=== PATIENT | female | born 1945 | race Caucasian/White ===

== ENCOUNTER 2016-11-26 16:32 | Inpatient (IN) | payer OTHER ==
[~2016-11-26] VITALS: Ht 172.7 cm; Wt 148.8 kg
[~2016-11-26 16:32] MED LIST: ADVAIR HFA120 INHALA IH; ALBUTEROL SULF8.5 GM IH; ALBUTEROL2.5 MG/3 M IH; ALDACTONE100 MG PO; AMOX TR-K CLV1 EAC4 PO; APRESOLINE50 MG PO; ARANESP60 MCG/0.3 SQ; ASCORBIC ACID500 M3 PO; ASPIR-LOW81 MG PO; ASPIR-TRIN325 M1 PO; ASPIRIN E.C.81 M1 PO; ASPIRIN325 MG PO; ASPIRIN81 M1 PO; ATORVASTATIN CA20 MG PO; ATORVASTATIN CA40 MG PO; AUGMENTIN875 MG PO; Ascorbic Acid,Ester- PO; Aspirin E.C. PO; BACTRIM,SEPT1 TABLE1 PO; BACTRIM,SEPT1 TABLET PO; BAYER ASPIRIN325 M1 PO; BIAXIN500 MG PO; BREO ELLIPTA 21 EACH IH; BUMETANIDE0.5 MG PO; BUMETANIDE1 MG PO; BUMEX0.5 MG PO; CALCITRIOL0.25 MCG PO; CALCIUM 600 +1 EAC9 PO; CARDIZEM60 MG PO; CARDURA1 MG PO; CARVEDILOL25 MG PO; CEFDINIR300 MG PO; CEFTIN500 MG PO; CENTRUM SILVER1 EAC3 PO; CENTRUM SILVER1 EAC4 PO; CEPHALEXIN500 MG PO; CILOSTAZOL50 MG PO; CIPRO500 MG PO; CIPROFLOXACIN500 M1 PO; CLONIDINE HCL0.1 MG PO; COREG12.5 MG PO; COREG25 M1 PO; COUMADIN1 MG PO; COUMADIN2 MG PO; CYMBALTA30 MG PO; Cardura PO; Centrum Silver,Certa PO; Chronulac,Cephulac,Enulose 20 gm/30 ml PO; Coreg PO; Coumadin,Jantoven PO; DAILY VALUE1 EACH PO; DIFLUCAN200 MG PO; DIGITEK125 MC2 PO; DIGOX125 MCG PO; DIGOXIN125 MCG PO; DITROPAN2.5 MG PO; DITROPAN5 MG PO; DOXYCYCLINE HY100 MG PO; DULOXETINE HCL30 MG PO; DUONEB 2.5-0.5 M3 ML AEROSOL; DUONEB 2.5-0.5 M3 ML IH; DUONEB3 ML IH; DURAGESIC25 MCG TD; DURAGESIC50 MCG TD; Diflucan PO; Dilaudid PO; Ditropan PO; EFFEXOR XR150 MG PO; EFFEXOR XR75 MG PO; EFFEXOR75 MG PO; ENDOCET 5-3251 EACH PO; ENULOSE10 GM/15 M PO; EPOGEN,PRO10000 UNIT SC; ERGOCALCIF50000 UNIT PO; EXTRA STRENGTH500 M1 PO; Effexor PO; Effexor XR PO; FENTANYL1 EAC1 TD; FENTANYL1 EAC5 TD; FEOSOL325 MG PO; FERROUS SULFAT325 MG PO; FISH OIL CONC1 EACH PO; FLAGYL500 MG PO; FLORA-Q CAPSUL1 EACH PO; FLORASTOR250 MG PO; FLORASTORKIDS250 MG PO; FLUCONAZOLE200 MG PO; FOLIC ACID1 MG PO; FOLVITE1 MG PO; FUROSEMIDE20 MG PO; FUROSEMIDE40 MG PO; Feosol PO; Flagyl IV; Flagyl PO; Folvite PO; GLUCO BURST37.5 GM PO; GLUCOSE GEL15 GM PO; HEPARIN SO5000 UNITS SC; HUMALOG MI100 UNIT/6; HUMALOG100 UNIT/1 SC; HUMULIN 70100 UNIT/2; HUMULIN R500 UNITS/ SC; HYDROPHOR OINT454 GM TP; HYZAAR 100-21 TABLET PO; Hyzaar 100-25 PO; Hyzaar 50-12.5 PO; INCRUSE ELLI62.5 MCG IH; IPRATR-ALBUTEROL3 ML IH; IRON 100 PLUS1 EACH PO; IRON325 M1 PO; IRON325 MG PO; K-DUR10 ME2 PO; K-DUR10 MEQ PO; K-DUR20 MEQ PO; KETOCONAZOLE60 GM TP; KLOR-CON M2020 MEQ PO; Keflex PO; LANOXIN125 MCG PO; LANTUS 10100 UNITS/ SC; LANTUS 3 M100 UNITS/ SC; LANTUS 3 M100 UNITS1 SC; LANTUS100 UNIT/1 SC; LANTUS100 UNIT/1 SQ; LASIX20 MG PO; LASIX40 MG PO; LEVAQUIN500 MG PO; LEVEMIR FL100 UNIT/1 SC; LEVEMIR100 UNIT/2 SC; LEVOTHYROXINE25 MCG PO; LIPITOR20 MG PO; LIPITOR40 MG PO; LIPITOR80 MG PO; LO-DOSE ASPIRIN81 M1 PO; LOSARTAN-HCTZ1 EAC1 PO; LYRICA100 MG PO; Lanoxin,Digitek PO; Lantus 3 ml Solostar SC; Lasix PO; Levaquin PO; Lipitor PO; MAG-OXIDE400 MG PO; METRONIDAZOLE500 MG PO; MILK OF MAGNESI10 ML PO; MULTI-VITAMIN1 EAC4 PO; MULTIPLE VITAM1 EACH PO; MULTIVITAMIN1 EAC1 PO; MULTIVITAMIN1 EAC2 PO; MYCAMINE100 MG IV; Macrobid PO; Maxipime IV; Micro-K,K-Tab,K-Dur, PO; Milk Of Magnesia,MOM PO; NACL; NEURONTIN100 MG PO; NITROGLYCERIN0.4 MG SL; NITROSTAT0.4 MG SL; NORVASC10 MG PO; NOVOLOG 10100 UNITS/ SC; NOVOLOG PE100 UNITS/ SC; NOVOLOG100 UNIT/1 SQ; NYSTATIN15 GM TP; Nitrostat,NitroQuick SL; NovoLOG, HumaLOG SC; ONDANSETRON ODT4 MG PO; OXYBUTYNIN CHLOR5 M1 PO; OXYBUTYNIN CHLOR5 MG PO; OXYCODONE HCL10 MG PO; OXYCODONE HCL5 M1 PO; OXYCODONE HCL5 MG PO; Ocean Nasal 0.65% BOTH NARES; Omega III EPA + DHA PO; PANTOPRAZOLE SO40 MG PO; PLAVIX75 MG PO; PLETAL50 MG PO; POLYETHYLENE GL17 GM PO; POTASSIUM; POTASSIUM CITR10 MEQ; POTASSIUM CITR10 MEQ PO; POVIDONE-IODINE30 GM TP; PRAVACHOL80 MG PO; PRAVASTATIN SOD80 MG PO; PREDNISONE20 MG PO; PRILOSEC40 MG PO; PRINIVIL40 MG PO; PROBIOTIC250 MG PO; PROCRIT10000 UNI1 SC; PROMETHAZINE HC25 M1 PO; PROTONIX40 MG PO; PROVENTIL,2.5 MG/3 M IH; ROCALTROL0.25 MCG PO; ROCEPHIN1 GM/50 ML IV; ROCEPHIN1000 MG IM; ROCEPHIN1000 MG IV; ROXICODONE5 MG PO; SANTYL30 GM TP; SODIUM CHLORIDE1 G1 PO; SORE THROAT LO1 EAC3 MM; SORE THROAT SP177 M1 MM; SPECTRAVITE SE1 EACH PO; SYNTHROID25 MCG PO; THERAGRAN1 TABLET PO; TRAMADOL; TRAMADOL HCL50 MG PO; TRIMETHOPRIM100 MG PO; TROSPIUM CHLORI20 MG PO; TYLENOL EXTRA500 MG PO; TYLENOL REGULA325 MG PO; Theragran PO; Tums PO; Tylenol PR; Tylenol Regular Stre PO; ULTRAM ER300 MG PO; ULTRAM50 MG PO; UNABLEOBTAIN; UROCIT-K15 MEQ PO; Ultram PO; VANCOCIN 250 M250 MG PO; VANCOCIN HCL PO; VANCOCIN HCL125 MG PO; VANCOMYCIN HCL125 MG PO; VANCOMYCIN HCL250 MG PO; VANCOMYCIN PO; VENLAFAXINE HC150 MG PO; VENLAFAXINE HCL75 MG PO; VITAMIN D-32000 UNI1 PO; VITAMIN D2000 INTUN PO; VITAMIN D250000 UNIT PO; VITAMIN D31000 UNI2 PO; VITAMIN D32000 UNI1 PO; VITAMIN D50000 UNI2 PO; VITAMIN D50000 UNIT PO; Vancocin Oral Soluti PO; Vancocin Oral Solution PO; Vitamin D, Drisdol PO; WARFARIN SODIUM5 MG PO; WELCHOL625 MG PO; XARELTO15 MG PO; XARELTO20 MG PO; XYLOCAINE 5%35.44 GM TP; Xarelto PO; ZEASORB POWDE70.9 GM TP; ZEASORB-AF70 G1 TP; ZESTRIL,PRINIVI10 M1 PO; ZESTRIL,PRINIVI10 MG PO; ZESTRIL,PRINIVI20 MG PO; ZESTRIL20 MG PO; ZINC OXIDE56.7 GM TP; ZINC SULFATE220 M1 PO; ZOCOR80 M1 PO; ZYVOX600 MG PO; Zeasorb Antifungal T TP; Zeasorb Antifungal Treatment,Mitrazol Powder TP; Zestril,Prinivil PO; Zocor PO; [UNRECOGNIZED DRUG - OTHER] TP
[2016-11-26 16:50] LABS: POINT-OF-CARE METER ID UU13113702
[2016-11-26 16:53] LABS: CREATININE 3.6 mg/dL (0.6-1.3); POTASSIUM 5.1 mEq/L (3.7-5.4)
[2016-11-26 17:02] LABS: HEMATOCRIT 31.3 % (36.0-46.0); MCH 30.9 PG (29.0-34.0); MCHC 32.6 G/DL (30.0-36.0); MCV 94.8 FL (83-99); MEAN PLAT.VOLUME 10.6 uM^3 (9.5-12.4); PLATELET COUNT 134 K/uL (156-360); WHITE BLOOD COUNT 17.5 K/uL (4.1-10.2)
[2016-11-26 17:13] LABS: CHLORIDE 104 mEq/L (99-109); POTASSIUM 4.9 mEq/L (3.7-5.4); SODIUM 133 mEq/L (136-147)
[2016-11-26 17:14] LABS: GLUCOSE 86 mg/dL (70-99)
[2016-11-26 17:15] LABS: ANION GAP 12 MEQ/L (2-14)
[2016-11-26] MEDS ORDERED: SPIRONOLACTONE100 MG PO (17:15)
[2016-11-26 17:17] LABS: GFR ESTIMATE (CALCULATED) 13 mL/min/
[2016-11-26] MEDS ORDERED: DEPAKOTE SPRIN125 MG PO (17:17)
[2016-11-26] MEDS ORDERED: FLORASTOR250 MG PO (17:17)
[2016-11-26 17:18] LABS: UREA NITROGEN (BUN) 51 mg/dL (9-23)
[2016-11-26] MEDS ORDERED: DUONEB 2.5-0.5 M3 ML AEROSOL (17:19)
[2016-11-26] MEDS ORDERED: GLUCO BURST37.5 GM PO (17:20)
[2016-11-26 17:59] LABS: ANISOCYTOSIS 1+; BURR CELLS RARE; EOSINOPHIL (%) 0 % (0-5); IMMATURE GRANULOCYTE (%) 6.1 % (0.0-0.7); IMMATURE GRANULOCYTE COUNT 10.6 K/uL; LYMPHOCYTE COUNT 0.5 K/uL (1.0-2.8); MACROCYTES FEW; MICROCYTOSIS OCC; MONOCYTE (%) 3.7 % (3-12); MONOCYTE COUNT 0.7 K/uL (0-0.8); NEUTROPHIL (%) 87.4 % (45-76); NEUTROPHIL COUNT 15.3 K/uL (1.8-6.4); OVALOCYTES OCC; PLAT.SUFFICIENCY DECREASED; SCHISTOCYTES FEW
[2016-11-26 18:22] LABS: POINT-OF-CARE METER ID UU13113702
[2016-11-26 19:09] LABS: BASE EXCESS -8.4 mEq/L (-3 to +3); BICARBONATE 18.8 mEq/L (22-26); CARBOXY HGB 2.1 % (0-5); METHEMOGLOBIN 1.3 % (0-1.5); PO2 68 mm Hg (80-100)
[2016-11-26 19:10] LABS: COMMENTS - BLOOD GASES C+; DEVICE NC; O2 FLOW 4 L/MIN; PCO2 45 mm Hg (35-45); SITE RR; TOTAL RESP RATE 16 resp/min; pH 7.23 (7.35-7.45)
[2016-11-26 19:20] LABS: POINT-OF-CARE METER ID UU13113702; POINT-OF-CARE USER ID NUTMMM10
[2016-11-26 20:34] LABS: POINT-OF-CARE METER ID UU13113702; POINT-OF-CARE USER ID NUTMMM10
[2016-11-26 21:55] VITALS: BP 85/40
[2016-11-26 22:12] LABS: ADD MIUA? YES; BILIRUBIN SMALL; BLOOD LARGE; COLOR DK YELLOW ((YELLOW)); GLUCOSE (STRIP) NEGATIVE; KETONES NEGATIVE; LEUKOCYTES MODERATE; NITRITE NEGATIVE; PROTEIN (STRIP) 300; SPECIFIC GRAVITY 1.014 (1.000-1.030); UROBILINOGEN 0.2 MG/DL (0.2-1.0)
[2016-11-26 22:50] LABS: POINT-OF-CARE METER ID UU14162636
[2016-11-26 23:00] LABS: UCUL ADDED? YES; WHITE BLOOD CELLS TNTC /HPF (0-5)
[2016-11-26 23:17] LABS: METH RESISTANT S AUREUS PCR POSITIVE (NEGATIVE)
[2016-11-26 23:27] LABS: PROBE CHECK PASS
[2016-11-26 23:32] LABS: TROP-I INTERPRETATION NEGATIVE; TROPONIN-I 0.15 ng/mL (0.0-0.30)
[2016-11-26 23:41] LABS: CHLORIDE 109 mEq/L (99-109); POTASSIUM 5.4 mEq/L (3.7-5.4); SODIUM 133 mEq/L (136-147)
[2016-11-26 23:45] LABS: ANION GAP 9 MEQ/L (2-14); TOTAL BILIRUBIN 1.2 mg/dL (0.0-1.0)
[2016-11-26 23:47] LABS: ALKALINE PHOSPHATASE 285 IU/L (3-129); GFR ESTIMATE (CALCULATED) 13 mL/min/
[2016-11-26 23:48] LABS: UREA NITROGEN (BUN) 49 mg/dL (9-23)
[2016-11-26 23:50] LABS: CREATINE KINASE 6 IU/L (1-294)
[2016-11-26 23:57] LABS: GLUCOSE 111 mg/dL (70-99)
[2016-11-27] VITALS (8 sets, daily range): BP systolic 0–154; BP diastolic 0–76
[2016-11-27 00:06] LABS: INTER. NORMALIZED RATIO 1.5; PROTHROMBIN TIME 15.8 (9.2-11.2); PTT 31.7 (25-32)
[2016-11-27 07:32] LABS: HEMATOCRIT 35.9 % (36.0-46.0); MCH 30.7 PG (29.0-34.0); MCV 95.7 FL (83-99); MEAN PLAT.VOLUME 11.4 uM^3 (9.5-12.4); PLATELET COUNT 120 K/uL (156-360); RBC DIS.WIDTH-CV 18.2 % (11.8-14.6); RBC DIS.WIDTH-SD 63.8 % (39-53); RED BLOOD COUNT 3.75 M/uL (3.80-5.20)
[2016-11-27 07:37] LABS: Estimated Average Glucose 128 mg/dL (70-123); HEMOGLOBIN A1c (GLYCOHEMOGLOB) 6.1 % HGB (Below 5.7)
[2016-11-27 08:00] LABS: TROP-I INTERPRETATION INDETERMINATE; TROPONIN-I 0.34 ng/mL (0.0-0.30)
[2016-11-27 08:22] LABS: POINT-OF-CARE METER ID UU13113702
[2016-11-27 08:36] LABS: ANION GAP 10 MEQ/L (2-14); CHLORIDE 107 MEQ/L (99-109); GFR ESTIMATE (CALCULATED) 15 mL/min/; GLUCOSE 147 mg/dL (70-99); MAGNESIUM 1.4 mg/dl (1.3-2.7); POTASSIUM 5.3 MEQ/L (3.7-5.4); SAMPLE HEMOLYSIS CHECK 0; SAMPLE ICTERIC CHECK 0; SAMPLE LIPEMIA CHECK 0; SODIUM 134 MEQ/L (136-147); UREA NITROGEN (BUN) 48 mg/dL (9-23)
[2016-11-27 12:17] LABS: TROP-I INTERPRETATION INDETERMINATE; TROPONIN-I 0.32 ng/mL (0.0-0.30)
[2016-11-27 13:39] LABS: C DIFF TOXIN POSITIVE (NEGATIVE)
[2016-11-27 14:00] LABS: PROBE CHECK PASS
[2016-11-27 18:23] LABS: POINT-OF-CARE METER ID UU14174217
[2016-11-28 01:12] LABS: POINT-OF-CARE METER ID UU13113748
[2016-11-28 05:42] LABS: HEMATOCRIT 33.2 % (36.0-46.0); MCH 31.1 PG (29.0-34.0); MCHC 32.8 G/DL (30.0-36.0); MCV 94.9 FL (83-99); MEAN PLAT.VOLUME 11.1 uM^3 (9.5-12.4); PLATELET COUNT 113 K/uL (156-360); RBC DIS.WIDTH-CV 18.1 % (11.8-14.6); WHITE BLOOD COUNT 12.7 K/uL (4.1-10.2)
[2016-11-28 05:45] LABS: POINT-OF-CARE METER ID UU14174217
[2016-11-28 06:24] LABS: ANION GAP 15 MEQ/L (2-14); CHLORIDE 106 MEQ/L (99-109); GFR ESTIMATE (CALCULATED) 14 mL/min/; GLUCOSE 190 mg/dL (70-99); MAGNESIUM 1.4 mg/dl (1.3-2.7); POTASSIUM 4.9 MEQ/L (3.7-5.4); SAMPLE HEMOLYSIS CHECK 0; SAMPLE ICTERIC CHECK 0; SAMPLE LIPEMIA CHECK 0; SODIUM 135 MEQ/L (136-147); UREA NITROGEN (BUN) 60 mg/dL (9-23)
[2016-11-28 07:20] LABS: CARBON DIOXIDE (BICARBONATE) 17.4 MEQ/L (20-31)
[2016-11-28 09:32] LABS: BASE EXCESS -12.7 mEq/L (-3 to +3); CARBOXY HGB 1.4 % (0-5); METHEMOGLOBIN 1.4 % (0-1.5)
[2016-11-28 09:33] LABS: BICARBONATE 14.9 mEq/L (22-26); PCO2 40 mm Hg (35-45); PO2 115 mm Hg (80-100); SITE ALINE; pH 7.18 (7.35-7.45)
[2016-11-28 09:34] LABS: COMMENTS - BLOOD GASES C+; DEVICE NC; O2 FLOW 5 L/MIN
[2016-11-28 12:29] LABS: POINT-OF-CARE METER ID UU13113748
[2016-11-28 15:24] LABS: BASE EXCESS -9.4 mEq/L (-3 to +3); BICARBONATE 17.6 mEq/L (22-26); CARBOXY HGB 1.4 % (0-5); COMMENTS - BLOOD GASES C+; DEVICE NC; METHEMOGLOBIN 1.8 % (0-1.5); O2 FLOW 4 L/MIN; PCO2 42 mm Hg (35-45); PO2 98 mm Hg (80-100); SITE RIGHT A-LINE; TOTAL RESP RATE 20 resp/min
[2016-11-28 15:25] LABS: pH 7.23 (7.35-7.45)
[2016-11-28 17:58] LABS: BASE EXCESS -7.6 mEq/L (-3 to +3); BICARBONATE 18.2 mEq/L (22-26); CARBOXY HGB 1.2 % (0-5); COMMENTS - BLOOD GASES C+; DEVICE NC; METHEMOGLOBIN 1.5 % (0-1.5); O2 FLOW 4 L/MIN; PCO2 37 mm Hg (35-45); PO2 120 mm Hg (80-100); SITE RIGHT A LINE; TOTAL RESP RATE 21 resp/min
[2016-11-28 18:22] LABS: POINT-OF-CARE METER ID UU13113748
[2016-11-28 23:56] LABS: POINT-OF-CARE METER ID UU13113748
[2016-11-29 06:31] LABS: HEMATOCRIT 31.6 % (36.0-46.0); MCH 29.9 PG (29.0-34.0); MCV 93.5 FL (83-99); MEAN PLAT.VOLUME 11.1 uM^3 (9.5-12.4); PLATELET COUNT 87 K/uL (156-360); RBC DIS.WIDTH-CV 18.2 % (11.8-14.6); RED BLOOD COUNT 3.38 M/uL (3.80-5.20); WHITE BLOOD COUNT 12.8 K/uL (4.1-10.2)
[2016-11-29 07:07] LABS: ANION GAP 14 MEQ/L (2-14); CHLORIDE 106 MEQ/L (99-109); GFR ESTIMATE (CALCULATED) 15 mL/min/; GLUCOSE 226 mg/dL (70-99); POTASSIUM 4.3 MEQ/L (3.7-5.4); SAMPLE HEMOLYSIS CHECK 0; SAMPLE ICTERIC CHECK 0; SAMPLE LIPEMIA CHECK 0; SODIUM 140 MEQ/L (136-147); UREA NITROGEN (BUN) 61 mg/dL (9-23)
[2016-11-29 07:10] LABS: MAGNESIUM 1.7 mg/dl (1.3-2.7)
[2016-11-29 12:42] LABS: ALKALINE PHOSPHATASE 151 IU/L (3-129); DIRECT BILIRUBIN 0.4 mg/dL (0.0-0.3); TOTAL BILIRUBIN 0.7 MG/DL (0.0-1.0)
[2016-11-30 05:30] LABS: POINT-OF-CARE METER ID UU13113748
[2016-11-30 06:29] LABS: HEMATOCRIT 28.8 % (36.0-46.0); MCH 30.6 PG (29.0-34.0); MCHC 32.6 G/DL (30.0-36.0); MCV 93.8 FL (83-99); MEAN PLAT.VOLUME 11.6 uM^3 (9.5-12.4); PLATELET COUNT 61 K/uL (156-360); RBC DIS.WIDTH-CV 18.2 % (11.8-14.6); RBC DIS.WIDTH-SD 62.4 % (39-53); RED BLOOD COUNT 3.07 M/uL (3.80-5.20)
[2016-11-30 06:30] LABS: WHITE BLOOD COUNT 8.9 K/uL (4.1-10.2)
[2016-11-30 07:12] LABS: ANION GAP 17 MEQ/L (2-14); CHLORIDE 104 MEQ/L (99-109); GFR ESTIMATE (CALCULATED) 15 mL/min/; GLUCOSE 285 mg/dL (70-99); MAGNESIUM 1.7 mg/dl (1.3-2.7); POTASSIUM 3.6 MEQ/L (3.7-5.4); SAMPLE HEMOLYSIS CHECK 0; SAMPLE ICTERIC CHECK 0; SAMPLE LIPEMIA CHECK 0; SODIUM 141 MEQ/L (136-147); UREA NITROGEN (BUN) 63 mg/dL (9-23)
[2016-11-30 10:06] LABS: INTER. NORMALIZED RATIO 1.4; PROTHROMBIN TIME 14.3 (9.2-11.2)
[2016-11-30 11:08] LABS: ALKALINE PHOSPHATASE 107 IU/L (3-129); DIRECT BILIRUBIN 0.3 mg/dL (0.0-0.3); TOTAL BILIRUBIN 0.7 MG/DL (0.0-1.0)
[2016-11-30 12:49] LABS: POINT-OF-CARE METER ID UU13113748
[2016-11-30 14:50] LABS: INTER. NORMALIZED RATIO 1.4
[2016-11-30 14:55] LABS: PTT 29.9 (25-32)
[2016-11-30 16:13] LABS: BASE EXCESS -3.7 mEq/L (-3 to +3); BICARBONATE 22.2 mEq/L (22-26); CARBOXY HGB 1.3 % (0-5); METHEMOGLOBIN 1.2 % (0-1.5); PCO2 43 mm Hg (35-45); PO2 117 mm Hg (80-100); pH 7.32 (7.35-7.45)
[2016-11-30 16:14] LABS: COMMENTS - BLOOD GASES C+; DEVICE NC; O2 FLOW 2 L/MIN; SITE A LINE
[2016-11-30 16:55] LABS: ANION GAP 13 MEQ/L (2-14); CHLORIDE 105 MEQ/L (99-109); GFR ESTIMATE (CALCULATED) 16 mL/min/; GLUCOSE 282 mg/dL (70-99); MAGNESIUM 1.6 mg/dl (1.3-2.7); POTASSIUM 3.4 MEQ/L (3.7-5.4); SAMPLE HEMOLYSIS CHECK 0; SAMPLE ICTERIC CHECK 0; SAMPLE LIPEMIA CHECK 0; SODIUM 140 MEQ/L (136-147); UREA NITROGEN (BUN) 63 mg/dL (9-23)
[2016-11-30 18:12] LABS: POINT-OF-CARE METER ID UU13113748
[2016-12-01] VITALS (14 sets, daily range): BP systolic 114–135; BP diastolic 60–82
[2016-12-01 00:08] LABS: POINT-OF-CARE METER ID UU13113748; POINT-OF-CARE USER ID PHATLC
[2016-12-01 06:10] LABS: POINT-OF-CARE METER ID UU13113748; POINT-OF-CARE USER ID PHATLC
[2016-12-01 13:34] LABS: POINT-OF-CARE METER ID UU13113748
[2016-12-01 14:22] LABS: Heparin Induced Plt Ab Negative (Negative)
[2016-12-01 15:50] LABS: UFH SRA Result Negative (Negative)
[2016-12-01 17:51] LABS: POINT-OF-CARE METER ID UU13113748
[2016-12-01 22:32] LABS: POINT-OF-CARE METER ID UU14174217; POINT-OF-CARE USER ID PHATLC
[2016-12-02] VITALS (24 sets, daily range): BP systolic 102–148; BP diastolic 53–90
[2016-12-02 07:24] LABS: ANION GAP 13 MEQ/L (2-14); CHLORIDE 104 MEQ/L (99-109); GFR ESTIMATE (CALCULATED) 17 mL/min/; GLUCOSE 227 mg/dL (70-99); SAMPLE HEMOLYSIS CHECK 0; SAMPLE ICTERIC CHECK 0; SAMPLE LIPEMIA CHECK 0; SODIUM 141 MEQ/L (136-147); UREA NITROGEN (BUN) 57 mg/dL (9-23)
[2016-12-02 07:25] LABS: POTASSIUM 2.7 MEQ/L (3.7-5.4)
[2016-12-02 08:40] LABS: POINT-OF-CARE METER ID UU13113748
[2016-12-02 12:47] LABS: POINT-OF-CARE METER ID UU13113748
[2016-12-02 17:41] LABS: POINT-OF-CARE METER ID UU13113748
[2016-12-02 23:21] LABS: POINT-OF-CARE USER ID PHATLC
[2016-12-03] VITALS (20 sets, daily range): BP systolic 129–169; BP diastolic 56–110
[2016-12-03 09:08] LABS: NRBC (%) 0.6 /100 WBC (0-0)
[2016-12-03 10:10] LABS: HEMATOCRIT 32.9 % (36.0-46.0); MCH 30.1 PG (29.0-34.0); MCHC 32.5 G/DL (30.0-36.0); MCV 92.7 FL (83-99); RBC DIS.WIDTH-CV 17.4 % (11.8-14.6); RBC DIS.WIDTH-SD 58.6 % (39-53); RED BLOOD COUNT 3.55 M/uL (3.80-5.20)
[2016-12-03 10:11] LABS: WHITE BLOOD COUNT 19.7 K/uL (4.1-10.2)
[2016-12-03 10:46] LABS: ANION GAP 11 MEQ/L (2-14); CHLORIDE 104 MEQ/L (99-109); GLUCOSE 233 mg/dL (70-99); MAGNESIUM 1.4 mg/dl (1.3-2.7); POTASSIUM 2.6 MEQ/L (3.7-5.4); SAMPLE HEMOLYSIS CHECK 0; SAMPLE ICTERIC CHECK 0; SAMPLE LIPEMIA CHECK 0; SODIUM 140 MEQ/L (136-147); UREA NITROGEN (BUN) 52 mg/dL (9-23)
[2016-12-03 10:48] LABS: GFR ESTIMATE (CALCULATED) 21 mL/min/
[2016-12-03 11:17] LABS: ABS NEUTROPHIL COUNT 17.75; ANISOCYTOSIS 1+; BASOPHIL COUNT 0.1 K/uL (0-0.1); EOSINOPHIL (%) 0.1 % (0-5); IMMATURE GRANULOCYTE (%) 8.5 % (0.0-0.7); IMMATURE GRANULOCYTE COUNT 1.7 K/uL; LYMPHOCYTE COUNT 1.3 K/uL (1.0-2.8); MACROCYTES OCC; MONOCYTE (%) 2.8 % (3-12); MONOCYTE COUNT 0.6 K/uL (0-0.8); NEUTROPHIL (%) 81.6 % (45-76); NEUTROPHIL COUNT 16.1 K/uL (1.8-6.4); PLAT.SUFFICIENCY ADEQUATE; PLATELET COUNT UNABLE TO REPORT K/uL (156-360); POLYCHROMASIA RARE; SPHEROCYTES RARE
[2016-12-03 22:36] LABS: POINT-OF-CARE METER ID UU13113731
[2016-12-04] VITALS: BP 152/83
[2016-12-04 04:00] VITALS: BP 122/70
[2016-12-04 07:40] VITALS: BP 118/58
[2016-12-04 08:22] LABS: POINT-OF-CARE METER ID UU14174216
[2016-12-04 11:19] VITALS: BP 123/62
[2016-12-04 11:25] LABS: POINT-OF-CARE METER ID UU14174216
[2016-12-04] MEDS ORDERED: CEFTIN250 MG PO (15:21)
[2016-12-04] MEDS ORDERED: VANCOCIN 250 M250 MG PO (15:22)
[2016-12-04 16:25] LABS: POINT-OF-CARE METER ID UU14174216
[2016-12-04 16:37] VITALS: BP 152/90
== END 2016-12-04 20:00 | DRG 871 ==
LOC: EME 16:32 → 4WEST 20:28 → 4EAST 20:28 → EDOF 20:28 → 4WEST 21:46 → 4EAST 12-04 07:50
PROVIDERS: Emergency Medicine; Family Medicine; Internal Medicine Critical Care Medicine; Internal Medicine Nephrology; Internal Medicine Pulmonary Disease; Surgery
PROC: 5A09357 Assistance with Respiratory Ventilation, Less than 24 Consecutive Hours, Continuous Positive Airway Pressure (ICD-10-PCS; principal; 2016-12-03)
DX: A41.9 Sepsis, unspecified organism (principal); R65.21 Severe sepsis with septic shock; G93.41 Metabolic encephalopathy; N17.9 Acute kidney failure, unspecified; K56.60 Unspecified intestinal obstruction; A04.7 Enterocolitis due to Clostridium difficile; E46 Unspecified protein-calorie malnutrition; N18.4 Chronic kidney disease, stage 4 (severe); N39.0 Urinary tract infection, site not specified; N13.2 Hydronephrosis with renal and ureteral calculous obstruction; E87.2 Acidosis; Z68.42 Body mass index [BMI] 45.0-49.9, adult; E11.22 Type 2 diabetes mellitus with diabetic chronic kidney disease; I12.9 Hypertensive chronic kidney disease with stage 1 through stage 4 chronic kidney disease, or unspecified chronic kidney disease; I48.2 Chronic atrial fibrillation; J44.9 Chronic obstructive pulmonary disease, unspecified; E66.01 Morbid (severe) obesity due to excess calories; I25.10 Atherosclerotic heart disease of native coronary artery without angina pectoris; E11.65 Type 2 diabetes mellitus with hyperglycemia; G47.33 Obstructive sleep apnea (adult) (pediatric); E78.5 Hyperlipidemia, unspecified; F31.9 Bipolar disorder, unspecified; F41.9 Anxiety disorder, unspecified; G62.9 Polyneuropathy, unspecified; I73.9 Peripheral vascular disease, unspecified; I50.9 Heart failure, unspecified; I25.2 Old myocardial infarction; G89.29 Other chronic pain; I27.2 Other secondary pulmonary hypertension; E03.9 Hypothyroidism, unspecified; I87.8 Other specified disorders of veins; E27.9 Disorder of adrenal gland, unspecified; Z95.5 Presence of coronary angioplasty implant and graft; B96.1 Klebsiella pneumoniae [K. pneumoniae] as the cause of diseases classified elsewhere; Z87.440 Personal history of urinary (tract) infections; Z96.649 Presence of unspecified artificial hip joint; Z85.41 Personal history of malignant neoplasm of cervix uteri; Z89.429 Acquired absence of other toe(s), unspecified side; Z79.4 Long term (current) use of insulin; Z98.84 Bariatric surgery status; Z79.01 Long term (current) use of anticoagulants
CPT/HCPCS: 36600; 36620; 50433; 71010; 74000; 74176; 80047; 80048; 80048 91; 80053; 80076; 81003; 82550; 82803; 82948; 83036; 83605; 83735; 83880; 84100; 84443; 84484; 85025; 85027; 85610; 85730; 86022 90; 87040; 87077; 87081; 87086; 87186; 87493; 87641; 87801; 93005; 93306; 93971; 94640; 94640 76; 94660; 94760; 94799; 97530 GP; 99202; 99281; 99285; C1769; C9113; J0171; J0696; J0883; J1720; J1815; J1940; J2543; J2710; J3370; J3475; J3480; J7030; J7042; J7050; J7120; P9047; S0028; S0030